=== PATIENT | male | born 1990 | race Caucasian/White ===

== ENCOUNTER 2021-04-08 10:25 | Emergency (ER) | payer OTHER ==
[~2021-04-08] VITALS: Ht 170.2 cm; Wt 72.0 kg
[2021-04-08] MEDS ORDERED: ACETAMINOPHEN 325 MG TABLET PO ONE (11:00)
[2021-04-08] MEDS ORDERED: KETOROLAC 30 MG/ML VIAL. IVP ONE (11:00)
--- NOTE | 2021-04-08 11:14 | PHYS DOC ---
Past History Past Surgical History: No Surgical History Alcohol Use: Occasionally Adult General Chief Complaint Chief Complaint: COUGH HPI HPI Patient is a 30-year-old male who presents to the emergency department concerning fevers and chills at home for the past 2 days, also reports a cough with blood-streaked sputum, states he gets right sided chest discomfort with deep breathing and cough, denies radiation of chest discomfort, denies nasal congestion or sore throat, patient denies shortness of breath, reports he did not take his temperature at home but felt as if he had a fever, reports his son tested positive for the flu this week, patient reports taking a home flu test that was negative, patient denies receiving a flu vaccine this year, reports taking the first dose of [employer] COVID-19 virus vaccination in December but did not like the way it made him feel so he did not return for his second dose. Patient reports taking [id number] cough and cold medications with minimal relief at home. Patient denies taking prescription medications at home, states he does not have a primary care physician, denies hospitalizations, reports he is generally healthy, reports he smokes cigarettes "every now and then ", denies alcohol or illicit drug use. Patient is unable to articulate a pain score for his chest discomfort stating it only hurts when he coughs or deep breathes. Review of Systems Review of Systems 14 body systems of review of systems have been reviewed. See HPI for pertinent positives and negative responses, otherwise all other systems are negative, nonpertinent or noncontributory. Constitutional: Negative except as outlined in HPI above. Skin: Negative except as outlined in HPI above. Eyes: Negative except as outlined in HPI above. HENT: Negative except as outlined in HPI above. Respiratory: Negative except as outlined in HPI above. Cardiovascular: Negative except as outlined in HPI above. GI: Negative except as outlined in HPI above. : Negative except as outlined in HPI above. Musculoskeletal: Negative except as outlined in HPI above. Integument: Negative except as outlined in HPI above. Neurologic: Negative except as outlined in HPI above. Endocrine: Negative except as outlined in HPI above. Lymphatic: Negative except as outlined in HPI above. Psychiatric: Negative except as outlined in HPI above. Allergies Allergies Allergies Coded Allergies Type Severity Reaction Last Updated Verified No Known Drug Allergies 04/08/21 No Physical Exam Physical Exam Constitutional: Well developed, well nourished, no acute distress, non-toxic appearance. 30-year-old male in no apparent distress. HENT: Normocephalic, atraumatic. Oropharynx moist, no uvular edema or deviation, mild erythema of the oropharynx, no peritonsillar cobblestoning or exudative drainage or edema, no laryngeal edema appreciated, no postnasal drip, bilateral nasal turbinates moist, pink, patent, bilateral TMs within normal limits, right-sided submental lymphadenopathy, no other lymphadenopathy of the head or neck appreciated. Patient speaking in normal voice tones. Eyes: Conjunctiva normal, no discharge. Neck: Normal range of motion, no stridor. Cardiovascular: No cyanosis appreciated, distal cap refill less than 2 seconds. Lungs & Thorax: Patient is in no respiratory distress, no audible adventitious lung sounds appreciated. Lung sounds clear all lung boone, coarse bronchial vesicular lung sounds with forced cough. Abdomen: Nontender, no abnormalities noted. Skin: Warm, dry, no erythema, no rash. Back: No tenderness, no deformities. Extremities: No tenderness, no cyanosis, no clubbing, ROM intact, no edema. Neurologic: Alert and oriented X 3, normal motor function, normal sensory function, no focal deficits noted. Psychologic: Affect normal, judgement normal, mood normal. Current Patient Data Vital Signs Vital Signs Date Time Temp Pulse Resp B/P (MAP) Pulse Ox O2 Delivery O2 Flow Rate FiO2 04/08/21 10:52 99.0 83 16 121/80 (94) 98 Room Air Lab Results Laboratory Tests Test 04/08/21 11:23 White Blood Count 8.9 x10^3/uL Red Blood Count 4.47 x10^6/uL Hemoglobin 13.6 g/dL Bedside Hemoglobin 13.3 gm/dL Hematocrit 40.3 % Bedside Hematocrit 39 % Mean Corpuscular Volume 90 fL Mean Corpuscular Hemoglobin 30 pg Mean Corpuscular Hemoglobin Concent 34 g/dL Red Cell Distribution Width 12.7 % Platelet Count 209 x10^3/uL Neutrophils (%) (Auto) 82 % Lymphocytes (%) (Auto) 10 % Monocytes (%) (Auto) 7 % Eosinophils (%) (Auto) 1 % Basophils (%) (Auto) 0 % Neutrophils # (Auto) 7.4 x10^3uL Lymphocytes # (Auto) 0.9 x10^3/uL Monocytes # (Auto) 0.6 x10^3/uL Eosinophils # (Auto) 0.1 x10^3/uL Basophils # (Auto) 0.0 x10^3/uL Bedside Sodium 141 mmol/L Bedside Potassium 4.1 mmol/L Bedside Chloride 104 mmol/L Bedside Total CO2 24 mmol/L Anion Gap 18 mmol/L Bedside Blood Urea Nitrogen 11 mg/dL Bedside Creatinine 0.8 mg/dL Glucose Level 103 mg/dL Bedside Ionized Calcium (Kimberlee) 1.19 mmol/L Bedside Troponin I 0.00 ng/ml Influenza Type A (Rapid) Negative Influenza Type B (Rapid) Negative SARS-CoV-2 Antigen (Rapid) Negative Current Medications Medications (Trade) Dose Ordered Sig/Devorah Route PRN Reason Start Time Stop Time Status Last Admin Dose Admin Ketorolac Tromethamine (Toradol 30mg Vial) 30 mg 1X ONCE IVP 04/08/21 11:00 04/08/21 11:07 DC 04/08/21 11:28 Acetaminophen (Tylenol) 650 mg 1X ONCE PO 04/08/21 11:00 04/08/21 11:07 DC 04/08/21 11:28 EKG EKG EKG performed at 1112 by ED nursing staff shows a normal sinus rhythm without ectopy, heart rate 80 bpm, IN interval 0.132, QTc interval 0.402, no acute STEMI, no ACS, no acute ischemia appreciated, EKG interpreted by ED attending physician Dr. De La Rosa. Radiology/Procedures Radiology/Procedures STATUS: REG ER ORD. PHYSICIAN: MALORIE MCKEON CLAIM INVESTIGATOR REASON: hemoptysis, cough,fever, right sided chest pain PROCEDURE: CHEST AP ONLY Exam Date: 04/08/2021 11:04 AM XR CHEST 1V Indication: Reason: hemoptysis, cough,fever, right sided chest pain / Spl. Instructions: / History: . FINDINGS/ IMPRESSION: Bibasilar infiltrate and/or atelectasis is noted. Follow-up imaging to resolution is recommended following treatment. The cardiac silhouette and pulmonary vasculature are within normal limits. There is no pleural effusion or pneumothorax. The visualized osseous structures are intact. Electronically signed by: Ector Yip MD (04/08/2021 11:20 AM) [facility] Heart Score C/O Chest Pain: Yes HEART Score for Chest Pain: HEART Score for Chest Pain Response (Comments) Value History Slighlty/Non-Suspicious 0 ECG Normal 0 Age < 45 0 Risk Factors 1 or 2 Risk Factors 1 Troponin < Normal Limit 0 Total 1 Risk Factors: Risk Factors: DM, Current or recent (<one month) smoker, HTN, HLP, family history of CAD, obesity. Risk Scores: Risk Factors: DM, Current or recent (<one month) smoker, HTN, HLP, family history of CAD, obesity. Course & Med Decision Making Course & Med Decision Making Pertinent Labs and Imaging studies reviewed. (See chart for details) 30-year-old male, vital signs reviewed, resents emerged from concerning bloody sputum with cough with fever and chills at home for the past 2 days. Physical examination concerning for bronchitis versus pneumonia versus viral syndrome versus other acute pulmonary process, will order rapid flu A/B testing, COVID-19 testing rapid and PCR, related to reported right-sided chest pain will order EKG, troponin I high-sensitivity, CBC, BMP, saline lock, Toradol for pain, acetaminophen for discomfort. EKG unremarkable, troponin I high-sensitivity negative, CBC, BMP unremarkable. Upon reevaluation of the patient, the patient remains nontoxic in appearance, no respiratory distress, vital signs within normal limits, the patient is not febrile, the patient is not hypoxic, chest x-ray concerning for community- acquired pneumonia, discussed findings with patient, patient has no comor bidities, will start on 1 g amoxicillin 3 times daily x5 days, reviewed return to ER precautions or concerns, follow-up with primary care for ongoing management, discussed with patient smoking cessation, patient gave verbal understanding of and is amenable to ED discharge planning. Discussed with the patient all findings and diagnostic testing as well as the need to follow-up with their primary care provider for further evaluation and treatment or return to the ED if any new or worsening symptoms. Strict return precautions were also discussed at length, the patient voiced understanding and agreement with the discharge planning. The patient was nontoxic in appearance, in no apparent distress, and hemodynamically stable at the time of disposition. Dragon Disclaimer Dragon Disclaimer This electronic medical record was generated, in whole or in part, using a voice recognition dictation system. Departure Departure: Impression: Primary Impression: Community acquired pneumonia Disposition: HOME / SELF CARE / HOMELESS Condition: GOOD Referrals: PCP,NO (PCP) Patient Instructions: Pneumonia, Adult Additional Instructions: You were seen today in the emergency department for cough and chest congestion, and EKG with blood work was performed today in the emergency department, these did not show any concerning findings, however your chest x-ray did show a pneumonia of the right lower lobe, as we discussed you will be started on gemini xicillin 1000 mg 3 times a day for the next 5 days. If not improving please return to the emergency department, you had indicated you do not have a primary care physician, please consider using the [facility] located at [facility] [address] [address] [place] [address], their telephone number is area code [phone], call for an appointment to establish primary care and ongoing healthcare management. Thank you for visiting our Emergency Department. It was a pleasure taking care of you today in the emergency department and we appreciate you trusting us with your care. If any additional problems come up don't hesitate to return to visit us. Please follow up with your primary care provider so they can plan additional care if needed and know about the problem that you had. If symptoms worsen come back to the Emergency Department. Any concerning symptoms that start such as chest pain, shortness of air, weakness or numbness on one side of the body, running high fevers or any other concerning symptoms return to the ER. Scripts Amoxicillin (AMOXICILLIN) 500 Mg Capsule 2 CAP PO TID for infection for 5 Days, #30 CAP 0 Refills Prov: MALORIE MCKEON APRN 04/08/21 Problem Qualifiers Primary Impression: Community acquired pneumonia Laterality: right Lung location: lower lobe of lung Qualified Codes: J18.9 - Pneumonia, unspecified organism MALORIE MCKEON CLAIM INVESTIGATOR Apr 08, 2021 11:14
--- NOTE | 2021-04-08 11:22 | RAD ---
Exam Date: 04/08/2021 11:04 AM XR CHEST 1V Indication: Reason: hemoptysis, cough,fever, right sided chest pain / Spl. Instructions: / History: . FINDINGS/ IMPRESSION: Bibasilar infiltrate and/or atelectasis is noted. Follow-up imaging to resolution is recommended fol lowing treatment. The cardiac silhouette and pulmonary vasculature are within normal limits. There is no pleural effusion or pneumothorax. The visualized osseous structures are intact. Electronically signed by: Ector Yip MD (04/08/2021 11:20 AM) [facility]
--- NOTE | 2021-04-08 11:25 | EKG ---
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
[2021-04-08 11:40] LABS: BASO % 0 % (0-3); EOS # 0.1 x10^3/uL (0.0-0.7); EOS % 1 % (0-3); HEMATOCRIT 40.3 % (39.0-53.0); HEMOGLOBIN 13.6 g/dL (13.0-17.5); LYMPH # 0.9 x10^3/uL (1.0-4.8); LYMPH % 10 % (24-48); MEAN CORPUSCULAR HEMOGLOBIN 30 pg (25-35); MEAN CORPUSCULAR HGB CONC 34 g/dL (31-37); MEAN CORPUSCULAR VOLUME 90 fL (79-100); MONO # 0.6 x10^3/uL (0.0-1.1); MONO % 7 % (0-9); NEUT # 7.4 x10^3uL (1.8-7.7); NEUT % 82 % (31-73); PLATELET COUNT 209 x10^3/uL (140-400); RED BLOOD COUNT 4.47 x10^6/uL (4.30-5.70); RED CELL DISTRIBUTION WIDTH 12.7 % (11.5-14.5); WHITE BLOOD COUNT 8.9 x10^3/uL (4.0-11.0)
[2021-04-08 11:54] LABS: POTASSIUM ISTAT 4.1 mmol/L (3.5-5.0)
[2021-04-08 11:55] LABS: HEMOGLOBIN ISTAT 13.3 gm/dL
[2021-04-08 12:03] LABS: INFLUENZA A PATIENT NEGATIVE (NEGATIVE); INFLUENZA B PATIENT NEGATIVE (NEGATIVE)
[2021-04-08] MEDS ORDERED: AMOX500C PO (12:37)
[2021-04-08 12:48] VITALS: BP 102/82
== END 2021-04-08 12:47 | disposition home or self-care (01) ==
LOC: ER 10:25
DX: J18.9 Pneumonia, unspecified organism (principal); Z20.822 Contact with and (suspected) exposure to COVID-19
CPT/HCPCS: 71045; 80047; 84484; 85025; 87426; 87804; 93005; 96374; 99285; C9803; J1885; U0003